=== PATIENT | female | born 1955 | race Caucasian/White ===

== ENCOUNTER → 2017-01-26 | Outpatient (CLI) | payer OTHER ==
--- NOTE | 2017-01-27 10:10 | KCIC ---
Arthritic series HISTORY: Polyarthralgia. Bilateral AP hand No evidence of bone destruction or erosion. Joint spaces appear intact. Soft tissues intact. Bilateral single view AP standing knee Medial and lateral joint compartments are intact. No evidence of significant bone erosion or bone production. Bilateral single view oblique feet Joint spaces and alignment are intact. No evidence of significant bone erosion. Minimal degenerative spurring at the first MTP joints bilaterally. Single view AP standing pelvis The hip joints appear intact bilaterally. No evidence of bone destruction. Single lateral view cervical spine Alignment intact. No evidence of bone destruction. Prevertebral soft tissues are within normal limits. There may be some minimal degenerative loss of height of the C4-5 and C5-6 intervertebral discs. End of report Electronically signed by: Abram Azar MD (01/27/2017 10:07 AM) [id number]
== END | disposition home or self-care (01) ==
LOC: KCIC 15:36
PROVIDERS: ATTEND Internal Medicine Rheumatology
DX: M25.571 Pain in right ankle and joints of right foot (principal); M25.562 Pain in left knee; M25.561 Pain in right knee; M47.892 Other spondylosis, cervical region; M25.572 Pain in left ankle and joints of left foot; M25.542 Pain in joints of left hand; M25.541 Pain in joints of right hand
CPT/HCPCS: 72020; 72170; 73120; 73565; 73620